=== PATIENT | female | born 1975 | race Caucasian/White ===

== ENCOUNTER 2017-05-24 22:04 | Emergency (ER) | payer MEDICAID ==
[2017-05-24 22:29] VITALS: BP 138/97
--- NOTE | 2017-05-25 13:38 | EDM.PDOC ---
ED HPI GENERAL MEDICAL PROBLEM - General Chief Complaint: General Stated Complaint: "NOT FEELING WELL" Time Seen by Provider: 05/24/17 22:15 Source of Information: Reports: Patient History Limitations: Reports: No Limitations - History of Present Illness INITIAL COMMENTS - FREE TEXT/NARRATIVE: This is a 41yo F here for cough, chest congestion and fever. She states she does have body aches. Patient has been sick since the of the month and states things have not improved. She has not seen a provider since the symptoms began and has not made any clinic appointment or call. Onset: Gradual Duration: Week(s):, Constant Location: Reports: Generalized - Related Data Allergies Allergy/AdvReac Type Severity Reaction Status Date / Time doxycycline Allergy Hives Verified 05/24/17 22:27 Home Meds: Home Meds Levothyroxine Sodium [Levothyroxine Sodium] 137 mcg PO DAILY 05/24/17 [History] Omeprazole [Omeprazole] 40 mg PO DAILY 05/24/17 [History] Past Medical History HEENT History: Reports: Other (See Below) Other HEENT History: Hx trach-has been removed Respiratory History: Reports: Other (See Below) Other Respiratory History: Hx Trach-has been removed Gastrointestinal History: Reports: GERD 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 Musculoskeletal History: Reports: Back Pain, Chronic Other Psychiatric History: Pt on medications for depression. Pt did not state that she had depression. 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 lymphoma Immunologic History: Reports: Other (See Below) Other Immunologic History: just finished radiation treatments Oncologic (Cancer) History: Reports: Non-Hodgkin's Lymphoma - Infectious Disease History Infectious Disease History: Reports: Chicken Pox - Past Surgical History Respiratory Surgical History: Reports: Other (See Below) Other Respiratory Surgeries/Procedures: tracheostomy Other Female Surgeries/Procedures: Lt ovary removed Social & Family History - Family History Family Medical History: Noncontributory - Tobacco Use Smoking Status *Q: Current Some Day Smoker Years of Tobacco use: 25 Packs/Tins Daily: 0.5 Used Tobacco, but Quit: No Month Tobacco Last Used: july quit one week ago Second Hand Smoke Exposure: No - Caffeine Use Caffeine Use: Reports: Coffee, Energy Drinks, Soda - Alcohol Use Days Per Week of Alcohol Use: 0 Number of Drinks Per Day: 1 Total Drinks Per Week: 0 - Recreational Drug Use Recreational Drug Use: No ED ROS GENERAL - Review of Systems Review Of Systems: ROS reveals no pertinent complaints other than HPI. ED EXAM, GENERAL - Physical Exam Exam: See Below Exam Limited By: No Limitations General Appearance: Alert, WD/WN, Mild Distress Eye Exam: Bilateral Eye: EOMI, PERRL Ears: Normal External Exam Nose: Normal Inspection, Normal Mucosa, No Blood Throat/Mouth: Normal Inspection, Normal Lips, Normal Teeth, Normal Gums Head: Atraumatic, Normocephalic Neck: Normal Inspection, Supple, Non-Tender, Full Range of Motion Respiratory/Chest: No Respiratory Distress, Lungs Clear, Normal Breath Sounds, No Accessory Muscle Use, Chest Non-Tender Cardiovascular: Normal Peripheral Pulses, Regular Rate, Rhythm GI/Abdominal: Normal Bowel Sounds, Soft, Non-Tender Back Exam: Normal Inspection, Full Range of Motion Neurological: Alert, Oriented, CN II-XII Intact Psychiatric: Normal Affect, Normal Mood Skin Exam: Warm, Dry, Intact Course - Vital Signs Last Recorded V/S: Last Vital Signs Temp 35.8 C 05/24/17 22:10 Pulse 90 05/24/17 22:10 Resp 20 05/24/17 22:10 BP 138/97 H 05/24/17 22:10 Pulse Ox 100 05/24/17 22:10 Departure - Departure Time of Disposition: 23:00 Disposition: Home, Self-Care 01 Condition: Good Clinical Impression: Cold - Discharge Information Instructions: Viral Gastroenteritis, Adult, [id number] Referrals: PCP,None [Primary Care Provider] - Forms: ED Department Discharge Additional Instructions: Drink plenty of fluids and get plenty of rest. Diet as tolerated. May take ibuprofen and/or tylenol according to package instructions as needed for pain. Should symptoms continue or worsen, follow up in clinic as needed. Call with any questions.
== END 2017-05-24 23:17 | disposition home or self-care (01) ==
LOC: LB.ED 22:04
DX: J00 Acute nasopharyngitis [common cold] (principal); E03.9 Hypothyroidism, unspecified; F17.210 Nicotine dependence, cigarettes, uncomplicated; Z90.721 Acquired absence of ovaries, unilateral; Z88.1 Allergy status to other antibiotic agents
CPT/HCPCS: 87804; 99283

== ENCOUNTER 2019-01-20 21:27 | Emergency (ER) | payer MEDICAID ==
[2019-01-20 21:41] VITALS: BP 151/100; PULSE 78
[2019-01-20] MEDS: Ketorolac 60 MG/2 ML SDV IM ONE (21:48)
--- NOTE | 2019-01-20 21:48 | EDM.PDOC ---
ED HPI GENERAL MEDICAL PROBLEM - General Chief Complaint: General Stated Complaint: migraine Time Seen by Provider: 01/20/19 21:30 Source of Information: Reports: Patient History Limitations: Reports: No Limitations - History of Present Illness INITIAL COMMENTS - FREE TEXT/NARRATIVE: According to patient she claims that she has been having right sided headache for 3 days now. Started as a dull throbbing pain on the rider frontal region, asso with photophobia and phonophobia 3 days ago. Has got worse .Pt has been taking Tylenol and ibuprofen 2-3 times daily and not able to sleep well at night. Has been feeling nauseous and has vomited few times. Today she rates her pain at 9/10 and hence her in the emergency room. Pt claims she has had margarine headache, but has not them for a while now, but in the past 2-3 months she has been getting more often. No mental stress. No blurry vision, no weakness, tingling or numbness. Onset: Gradual Onset Date: 01/17/19 Duration: Getting Worse Location: Reports: Head Quality: Reports: Ache Severity: Severe Improves with: Reports: None Worsens with: Reports: None Associated Symptoms: Reports: Headaches. Denies: Confusion, Chest Pain, Cough, Diaphoresis, Fever/Chills, Nausea/Vomiting, Rash, Seizure, Shortness of Breath, Syncope, Weakness Headache Pain Score (Numeric/FACES): 10 - Related Data Allergies Allergy/AdvReac Type Severity Reaction Status Date / Time doxycycline Allergy Hives Verified 05/26/18 21:15 Home Meds: Home Meds Levothyroxine Sodium 137 mcg PO DAILY 05/24/17 [History] Omeprazole 40 mg PO DAILY 05/24/17 [History] PARoxetine [Paxil] 20 mg PO DAILY 05/26/18 [History] hydrOXYzine HCl [hydrOXYzine] 25 mg PO DAILY PRN 05/26/18 [History] Past Medical History HEENT History: Reports: Other (See Below) Other HEENT History: Hx trach-has been removed Respiratory History: Reports: Other (See Below) Other Respiratory History: Hx Trach-has been removed Gastrointestinal History: Reports: GERD 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 Musculoskeletal History: Reports: Back Pain, Chronic Other Psychiatric History: Pt on medications for depression. Pt did not state that she had depression. 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 lymphoma Immunologic History: Reports: Other (See Below) Other Immunologic History: just finished radiation treatments Oncologic (Cancer) History: Reports: Non-Hodgkin's Lymphoma - Infectious Disease History Infectious Disease History: Reports: Chicken Pox - Past Surgical History Respiratory Surgical History: Reports: Other (See Below) Other Respiratory Surgeries/Procedures: tracheostomy Other Female Surgeries/Procedures: Lt ovary removed Social & Family History - Family History Family Medical History: Noncontributory - Tobacco Use Smoking Status *Q: Current Every Day Smoker Years of Tobacco use: 20 Packs/Tins Daily: 0.5 - Caffeine Use Caffeine Use: Reports: Coffee, Soda - Recreational Drug Use Recreational Drug Use: No ED ROS GENERAL - Review of Systems Review Of Systems: See Below Constitutional: Denies: Fever, Chills, Weakness HEENT: Denies: Ear Pain, Rhinitis, Throat Pain, Vision Change Respiratory: Denies: Cough, Sputum Cardiovascular: Denies: Chest Pain, Lightheadedness, Syncope GI/Abdominal: Reports: Nausea, Vomiting Musculoskeletal: Denies: Joint Pain, Joint Swelling Skin: Denies: Bruising, Pruritis, Rash Neurological: Reports: Headache. Denies: Confusion, Dizziness, Numbness, Tingling ED EXAM, GENERAL - Physical Exam Exam: See Below Exam Limited By: No Limitations General Appearance: Alert, WD/WN, Mild Distress (from headache.) Eye Exam: Bilateral Eye: EOMI, PERRL Ears: Normal External Exam, Normal Canal, Hearing Grossly Normal, Normal TMs Ear Exam: Bilateral Ear: Auricle Normal, Canal Normal, TM normal Nose: Normal Inspection, Normal Mucosa, No Blood Throat/Mouth: Normal Inspection, Normal Lips, Normal Teeth, Normal Gums, Normal Oropharynx, Normal Voice, No Airway Compromise Head: Atraumatic, Normocephalic Neck: Normal Inspection, Supple, Non-Tender, Full Range of Motion Respiratory/Chest: No Respiratory Distress, Lungs Clear, Normal Breath Sounds, No Accessory Muscle Use, Chest Non-Tender Cardiovascular: Normal Peripheral Pulses, Regular Rate, Rhythm, No Edema, No Gallop, No JVD, No Murmur, No Rub Extremities: Normal Inspection, Normal Range of Motion, Non-Tender, Normal Capillary Refill, No Pedal Edema Neurological: Alert, Oriented, CN II-XII Intact, Normal Cognition, Normal Gait, Normal Reflexes, No Motor/Sensory Deficits Course - Vital Signs Text/Narrative:: Pt appears to have migraine headache , as she has photophobia and phonophobia. Also has been nauseous. Hr headache has not resolved in 3 days now. Pt did receive Toradol 60mg Im along with zofran 4mg Im in the emergency room. Pt advised to go home and sleep. Headache should resolve in 2-3 hrs time. If she continues to have recurrent headache, she should be seen in the clinic and started on prophylaxis. Last Recorded V/S: Last Vital Signs Temp 97.4 F 01/20/19 21:30 Pulse 78 01/20/19 21:30 Resp 16 01/20/19 21:30 BP 151/100 H 01/20/19 21:30 Pulse Ox 99 01/20/19 21:30 - Orders/Labs/Meds Meds: Medications Discontinued Medications Generic Name Dose Route Start Last Admin Trade Name Ruby PRN Reason Stop Dose Admin Ketorolac Tromethamine 60 mg 01/20/19 21:45 01/20/19 21:48 Toradol IM 01/20/19 21:46 60 mg ONETIME ONE Administration Ondansetron HCl 4 mg 01/20/19 21:46 01/20/19 21:50 Zofran IM 01/20/19 21:47 4 mg ONETIME ONE Administration Departure - Departure Time of Disposition: 22:00 Disposition: Home, Self-Care 01 Condition: Fair Clinical Impression: Migraine headache - Discharge Information *PRESCRIPTION DRUG MONITORING PROGRAM REVIEWED*: Not Applicable *COPY OF PRESCRIPTION DRUG MONITORING REPORT IN PATIENT MELVIN: Not Applicable Forms: ED Department Discharge Additional Instructions: Pt appears to have migraine headache , as she has photophobia and phonophobia. Also has been nauseous. Hr headache has not resolved in 3 days now. Pt did receive Toradol 60mg Im along with zofran 4mg Im in the emergency room. Pt advised to go home and sleep. Headache should resolve in 2-3 hrs time. If she continues to have recurrent headache, she should be seen in the clinic and started on prophylaxis. - Problem List & Annotations (1) Migraine headache SNOMED Code(s): 79170286 Code(s): G43.909 - MIGRAINE, UNSP, NOT INTRACTABLE, WITHOUT STATUS MIGRAINOSUS Status: Acute Current Visit: Yes - Problem List Review Problem List Initiated/Reviewed/Updated: Yes - Assessment/Plan Assessment:: Migraine headache Plan: Pt appears to have migraine headache , as she has photophobia and phonophobia. Also has been nauseous. Hr headache has not resolved in 3 days now. Pt did receive Toradol 60mg Im along with zofran 4mg Im in the emergency room. Pt advised to go home and sleep. Headache should resolve in 2-3 hrs time. If she continues to have recurrent headache, she should be seen in the clinic and started on prophylaxis.
[2019-01-20] MEDS: Ondansetron 4 MG/2 ML SDV IM ONE (21:50)
== END 2019-01-20 22:05 | disposition home or self-care (01) ==
LOC: LB.ED 21:27
DX: G43.909 Migraine, unspecified, not intractable, without status migrainosus (principal); E03.9 Hypothyroidism, unspecified; K21.9 Gastro-esophageal reflux disease without esophagitis; F32.9 Major depressive disorder, single episode, unspecified; F17.210 Nicotine dependence, cigarettes, uncomplicated; Z88.8 Allergy status to other drugs, medicaments and biological substances; Z79.899 Other long term (current) drug therapy
CPT/HCPCS: 96372; 99283; J1885; J2405

== ENCOUNTER 2019-09-17 09:24 | Emergency (ER) | payer BC ==
[2019-09-17] MEDS ORDERED: Ketorolac 60 MG/2 ML SDV IM ONE (10:01)
[2019-09-17 10:04] VITALS: BP 139/101; PULSE 93
--- NOTE | 2019-09-17 10:05 | EDM.PDOC ---
ED HPI GENERAL MEDICAL PROBLEM - General Chief Complaint: Trauma Stated Complaint: RIGHT FOOT PAIN Time Seen by Provider: 09/17/19 10:00 Source of Information: Reports: Patient History Limitations: Reports: No Limitations - History of Present Illness INITIAL COMMENTS - FREE TEXT/NARRATIVE: This patient presents to the ED for evaluation of right ankle pain. She states she stepped off a curb and rolled her ankle. She is complaining of pain on the dorsum of the foot. She did fall into the side of her car but denies other injuries. She denies recent illness including fever, cough, shortness or breath , of sore throat. Onset: Today, Sudden Onset Date: 09/17/19 Duration: Getting Worse Location: Reports: Lower Extremity, Right Quality: Reports: Throbbing Severity: Moderate Worsens with: Reports: Movement Context: Reports: Activity Right Ankle Pain Score (Numeric/FACES): 9 - Related Data Allergies Allergy/AdvReac Type Severity Reaction Status Date / Time doxycycline Allergy Hives Verified 09/17/19 09:58 Home Meds: Home Meds Levothyroxine Sodium 137 mcg PO DAILY 05/24/17 [History] Omeprazole 40 mg PO DAILY 05/24/17 [History] PARoxetine [Paxil] 20 mg PO DAILY 05/26/18 [History] hydrOXYzine HCL [hydrOXYzine] 25 mg PO DAILY PRN 05/26/18 [History] Past Medical History HEENT History: Reports: Other (See Below) Other HEENT History: Hx trach-has been removed Respiratory History: Reports: Other (See Below) Other Respiratory History: Hx Trach-has been removed Gastrointestinal History: Reports: GERD 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 Musculoskeletal History: Reports: Back Pain, Chronic Neurological History: Reports: Migraines Other Psychiatric History: Pt on medications for depression. Pt did not state that she had depression. 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 lymphoma Immunologic History: Reports: Other (See Below) Other Immunologic History: just finished radiation treatments Oncologic (Cancer) History: Reports: Non-Hodgkin's Lymphoma - Infectious Disease History Infectious Disease History: Reports: Chicken Pox - Past Surgical History Respiratory Surgical History: Reports: Other (See Below) Other Respiratory Surgeries/Procedures: tracheostomy Other Female Surgeries/Procedures: Lt ovary removed Social & Family History - Family History Family Medical History: Noncontributory - Caffeine Use Caffeine Use: Reports: Coffee, Soda Review of Systems - Review of Systems Review Of Systems: Comprehensive ROS is negative, except as noted in HPI. ED EXAM, GENERAL - Physical Exam Exam: See Below Exam Limited By: No Limitations General Appearance: Alert, No Apparent Distress Eye Exam: Bilateral Eye: PERRL Ears: Normal External Exam Nose: Normal Inspection Throat/Mouth: Normal Inspection Head: Atraumatic, Normocephalic Neck: Normal Inspection, Full Range of Motion Respiratory/Chest: No Respiratory Distress, No Accessory Muscle Use Extremities: Other (Left foot: swollen across dorsum, no obvious deformity with moderate amount of swelling. Distal CMS intact.) Neurological: Alert, Oriented Psychiatric: Normal Affect Skin Exam: Warm, Dry, Intact ED TRAUMA EXTREMITY PROCEDURES - Splinting Right Lower Extremity Splint Site: right foot Pre-Procedure NV Status: Normal Post-Procedure NV Status: Normal Splint Material: Boot Orthotic Applied & Form Fitted By: Nurse Provider Post-Splint Application NV Check: NV Status Normal, Good Position Complications: No Course - Vital Signs Last Recorded V/S: Last Vital Signs Temp 36.3 C 09/17/19 09:58 Pulse 93 09/17/19 09:58 Resp 16 09/17/19 09:58 BP 139/101 H 09/17/19 09:58 Pulse Ox 98 09/17/19 09:58 - Orders/Labs/Meds Orders: Active Orders 24 hr Category Date Time Status Ankle Min 3V Rt [CR] Stat Exams 09/17/19 10:01 Taken Meds: Medications Discontinued Medications Generic Name Dose Route Start Last Admin Trade Name Ruby PRN Reason Stop Dose Admin Ketorolac Tromethamine 60 mg 09/17/19 10:01 09/17/19 10:11 Toradol IM 09/17/19 10:02 60 mg ONETIME ONE Administration Ketorolac Tromethamine Confirm 09/17/19 10:19 Toradol Administered 09/17/19 10:20 Dose 60 mg .ROUTE .STK-MED ONE - Re-Assessments/Exams Free Text/Narrative Re-Assessment/Exam: 09/17/19 13:07 This patient presents for evaluation of foot pain after a fall. CMS is intact distally in the extremity. X-rays reveal a non-displaced fracture of the proximal 3rd tarsal that does not need reduction at this time. Splint and fracture precautions for home. The patients head to toe trauma exam is otherwise normal at this time and no further trauma workup is needed as I believe there is no signs of serious head, neck, chest, spinal, extremity or abdominal injuries. This is a non-operative injury and unless further angulation with time or unrelenting pain, definitive fracture care is provided. Patient educated on natural course of this fracture, provided pain medication, need for increasing gentle activity, and possible complications of fractures. They need to follow up with primary only and only if further symptoms or progressive symptoms will need to seek care again in ED or with primary care provider. Departure - Departure Time of Disposition: 11:00 Disposition: Home, Self-Care 01 Condition: Good Clinical Impression: Fracture of foot - Discharge Information Instructions: Ankle Fracture Referrals: PCP,None [Primary Care Provider] - Forms: ED Department Discharge Care Plan Goals: Keep walking boot on as much as possible. Ice and elevate the next 24-48 hrs. Take pain medication as directed for pain. Limit activity, return or call with any questions or concerns. Sepsis Event Note - Focused Exam Vital Signs: Vital Signs Temp Pulse Resp BP Pulse Ox 09/17/19 09:58 36.3 C 93 16 139/101 H 98 Date Exam was Performed: 09/17/19 Time Exam was Performed: 13:02 - My Orders Last 24 Hours: My Active Orders 09/17/19 10:01 Ankle Min 3V Rt [CR] Stat - Assessment/Plan Last 24 Hours: My Active Orders 09/17/19 10:01 Ankle Min 3V Rt [CR] Stat
[2019-09-17] MEDS ORDERED: Ketorolac 60 MG/2 ML SDV ONE (10:19)
[2019-09-17] MEDS ORDERED: Acetaminophen/oxyCODONE 325-5 MG Tab ONE (10:30)
--- NOTE | 2019-09-17 23:17 | CR ---
DATE OF SERVICE: 09/17/2019 CLINICAL DATA: Trauma. RIGHT FOOT: Mild osteoarthritic changes involving multiple joints. There are plantar and posterior calcaneal spurs. No acute abnormalities. [id number] [facility]
== END 2019-09-17 10:40 | disposition home or self-care (01) ==
LOC: LB.ED 09:24
DX: S92.201A Fracture of unspecified tarsal bone(s) of right foot, initial encounter for closed fracture (principal); K21.9 Gastro-esophageal reflux disease without esophagitis; E03.9 Hypothyroidism, unspecified; F32.9 Major depressive disorder, single episode, unspecified; Z88.1 Allergy status to other antibiotic agents; Z79.899 Other long term (current) drug therapy; X50.9XXA Other and unspecified overexertion or strenuous movements or postures, initial encounter
CPT/HCPCS: 73610-RT; 96372; 99283-25; A9270-GY; J1885

== ENCOUNTER 2019-11-07 09:28 | Emergency (ER) | payer BC ==
[2019-11-07 09:55] VITALS: BP 144/106; PULSE 86
[2019-11-07] MEDS ORDERED: Ketorolac 30 MG/ML SDV IVPUSH ONE (10:15)
[2019-11-07] MEDS ORDERED: Ondansetron 4 MG/2 ML SDV IVPUSH ONE ×2 (10:15→11:39)
[2019-11-07] MEDS ORDERED: Sodium Chloride 0.9% 1,000 ML IV ONE (10:16)
[2019-11-07] MEDS ORDERED: Ketorolac 30 MG/ML SDV ONE (10:40)
[2019-11-07] MEDS ORDERED: Ondansetron 4 MG/2 ML SDV ONE ×2 (10:45→11:56)
[2019-11-07] MEDS ORDERED: HYDROmorphone 2 MG/ML SDV IVPUSH ONE ×2 (11:18→11:39)
[2019-11-07] MEDS ORDERED: HYDROmorphone 2 MG/ML SDV ONE ×2 (11:29→11:56)
--- NOTE | 2019-11-07 15:17 | ER ---
HISTORY OF PRESENT ILLNESS: 44-year-old lady who comes in with complaints of a headache that started yesterday. She has been nauseated. She has vomited multiple times overnight. She feels fatigued and sweaty at times. She is very light sensitive as well. She also noted yesterday she had one occasion of some blood in her urine, but that was only one occasion. The patient has not had any falls or injuries. She works at [place] the [place]. She has not had any known exposure to COVID. OBJECTIVE: GENERAL APPEARANCE: The patient is awake and alert. She is obviously somewhat sensitive to light. VITAL SIGNS: Reviewed. Blood pressure 144/106. She is afebrile. O2 sats are 97%, respirations 18. HEENT: Ears; TMs are dull, otherwise normal. Nares are patent. Oral mucous membranes are slightly dry. Tonsils are not enlarged or injected. Pharynx not inflamed. NECK: Supple. LUNGS: Clear. SKIN: Warm and dry. ABDOMEN: Soft. Mild tenderness diffusely is noted with light palpation. Bowel sounds are present and active. INITIAL TREATMENT: An IV was started. The patient was given Toradol 30 mg and Zofran 4 mg IV, and we started 1 L bolus of normal saline. LABORATORY DATA: Labs done included CBC which is normal as well as a CMP which is unremarkable. The patient did not receive much relief from the Toradol. We therefore added Dilaudid 1 mg IV and within about 20 minutes, she stated that she was definitely feeling better. A COVID test was also done with results pending. DIAGNOSIS: Migraine headache. TREATMENT PLAN: The patient will be discharged home. We did give her 1 more mg of Dilaudid and 4 mg of Zofran as a 2nd dose just before leaving. 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 She states that she usually uses Imitrex at home as well as other [id number] medications plus rest when she gets a migraine. I advised her to do the same thing. I gave her slip to be off work today and possibly tomorrow. CRS/MODL /[id number]
--- NOTE | 2019-11-07 16:54 | CR ---
Date of Service: 11/07/19 Clinical Data: cough AP CHEST: Comparison is made a prior exam dated 04/06/19. The heart size is normal. The lungs are clear. No pneumothorax. No pleural effusions. No evidence of acute intrathoracic disease. [id number] [facility]
== END 2019-11-07 12:26 | disposition home or self-care (01) ==
LOC: LB.ED 09:28
DX: G43.909 Migraine, unspecified, not intractable, without status migrainosus (principal); R11.10 Vomiting, unspecified; Z20.828 Contact with and (suspected) exposure to other viral communicable diseases
CPT/HCPCS: 36415; 71045; 80053; 85025; 96361; 96374; 96375; 96376; 99284-25; J1170; J1885; J2405; J7030; U0002

== ENCOUNTER 2020-01-07 11:44 | Emergency (ER) | payer BC, OTHER ==
[2020-01-07] MEDS ORDERED: Nitroglycerin 0.4 MG Tab.SL SL PRN (12:15)
[2020-01-07] MEDS ORDERED: Sodium Chloride 0.9% 10 ML Syringe FLUSH PRN (12:15)
[2020-01-07] MEDS ORDERED: Morphine 2 MG/ML SYRINGE IVPUSH PRN (12:15)
--- NOTE | 2020-01-07 12:15 | EDM.PDOC ---
ED HPI GENERAL MEDICAL PROBLEM - General Chief Complaint: Chest Pain Stated Complaint: CHEST PAIN Time Seen by Provider: 01/07/20 12:08 Source of Information: Reports: Patient History Limitations: Reports: No Limitations - History of Present Illness INITIAL COMMENTS - FREE TEXT/NARRATIVE: 44 y/o female c/o intense chest pain, sharp, stabbing and piercing into back, dyspnea, no diaphoresis. Tinging in right arm and right side of his face and lips. Pain rated 9/10. Given two baby asa and one NTG with improvement of pain from 9 to 6. No cardiac hx but h/o non-hodgkins lymphoma in admission past 3 years. 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 Musculoskeletal History: Reports: Back Pain, Chronic Neurological History: Reports: Migraines Other Psychiatric History: Pt on medications for depression. Pt did not state that she had depression. 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 lymphoma Immunologic History: Reports: Other (See Below) Other Immunologic History: just finished radiation treatments Oncologic (Cancer) History: Reports: Non-Hodgkin's Lymphoma - Infectious Disease History Infectious Disease History: Reports: Chicken Pox - Past Surgical History Respiratory Surgical History: Reports: Other (See Below) Other Respiratory Surgeries/Procedures: tracheostomy Other Female Surgeries/Procedures: Lt ovary removed Social & Family History - Family History Family Medical History: Noncontributory - Caffeine Use Caffeine Use: Reports: Coffee ED ROS GENERAL - Review of Systems Review Of Systems: See Below Constitutional: Denies: Fever, Malaise HEENT: Reports: No Symptoms Respiratory: Reports: No Symptoms, Shortness of Breath, Pleuritic Chest Pain. Denies: Wheezing Cardiovascular: Reports: Chest Pain Endocrine: Reports: No Symptoms GI/Abdominal: Reports: No Symptoms. Denies: Nausea, Vomiting Musculoskeletal: Reports: Arm Pain Skin: Reports: No Symptoms Neurological: Reports: No Symptoms, Paresthesia. Denies: Headache Psychiatric: Reports: No Symptoms ED EXAM, GENERAL - Physical Exam Exam: See Below Exam Limited By: No Limitations General Appearance: Alert, WD/WN, Anxious, Mild Distress Ears: Normal External Exam Nose: Normal Inspection Throat/Mouth: Normal Inspection Head: Atraumatic, Normocephalic Neck: Normal Inspection, Supple, Non-Tender, Full Range of Motion Respiratory/Chest: No Respiratory Distress, Lungs Clear, Normal Breath Sounds Cardiovascular: Normal Peripheral Pulses, Regular Rate, Rhythm, No Edema GI/Abdominal: Soft Neurological: Alert, Oriented, CN II-XII Intact, Normal Cognition, Normal Gait Psychiatric: Normal Affect, Normal Mood, Anxious Skin Exam: Warm, Dry EKG INTERPRETATION EKG Date: 01/07/20 Rhythm: NSR [place]: Normal P-Wave: Present QRS: Normal ST-T: Normal QT: Normal Course - Vital Signs Last Recorded V/S: Last Vital Signs Temp Pulse 98 01/07/20 12:50 Resp 16 01/07/20 13:30 BP 136/96 H 01/07/20 13:30 Pulse Ox 98 01/07/20 13:30 - Orders/Labs/Meds Orders: Active Orders 24 hr Category Date Time Status Morphine Med 01/07/20 12:15 Active 4 mg IVPUSH Q10M PRN Nitroglycerin [Nitrostat] Med 01/07/20 12:15 Active 0.4 mg SL Q5M PRN Sodium Chloride 0.9% [Saline Flush] Med 01/07/20 12:15 Active 10 ml FLUSH ASDIRECTED PRN Peripheral IV Insertion Adult [OM.PC] Stat Oth 01/07/20 12:15 Ordered Medication Orders Morphine Sulfate (Morphine) 4 mg IVPUSH Q10M PRN PRN Reason: Chest Pain Stop: 01/08/20 12:17 Last Admin: 01/07/20 12:35 Dose: 4 mg Documented by: DEVAN Nitroglycerin (Nitrostat) 0.4 mg SL Q5M PRN PRN Reason: Chest Pain Stop: 01/08/20 12:18 Sodium Chloride (Saline Flush) 10 ml FLUSH ASDIRECTED PRN PRN Reason: Keep Vein Open Labs: Laboratory Tests 01/07/20 01/07/20 01/07/20 Range/Units 12:15 12:24 12:30 WBC 10.0 D (4.0-11.0) K/uL RBC 4.90 (3.80-5.80) M/uL Hgb 15.1 (11.5-16.5) g/dL Hct 43.7 (37.0-47.0) % MCV 89 (76-96) fL MCH 30.8 (27.0-32.0) pg MCHC 34.6 (31.0-35.0) g/dL RDW 13.2 (11.0-16.0) % Plt Count 327 (150-500) K/uL MPV 9.1 (6.0-10.0) fL Neut % (Auto) 63.2 (45.0-70.0) % Lymph % (Auto) 24.2 (20.0-40.0) % [place] % (Auto) 10.3 H (3.0-10.0) % Eos % (Auto) 1.7 (1.0-5.0) % Baso % (Auto) 0.6 H (0.0-0.5) % Neut # (Auto) 6.32 (2.00-7.50) K/uL Lymph # (Auto) 2.42 (1.50-4.00) K/uL [place] # (Auto) 1.03 H (0.20-0.80) K/uL Eos # (Auto) 0.17 (0.04-0.40) K/uL Baso # (Auto) 0.06 (0.02-0.10) K/uL Sodium 140 (136-145) mmol/L Potassium 3.9 (3.5-5.1) mmol/L Chloride 104 (98-107) mmol/L Carbon Dioxide 25.0 (21.0-32.0) mmol/L Anion Gap 14.9 (5.0-15.0) mmol/L BUN 10 D (8-26) mg/dL Creatinine 0.72 (0.55-1.02) mg/dL Est Cr Clr Drug Dosing TNP Estimated GFR (MDRD) > 60 (>60) MLS/MIN BUN/Creatinine Ratio 13.9 (6-25) Glucose 98 (74-100) mg/dL Calcium 8.8 (8.5-10.1) mg/dL Total Bilirubin 0.7 (0.0-1.0) mg/dL AST 25 (15-37) U/L ALT 45 (12-78) U/L Alkaline Phosphatase 92 (46-116) U/L Troponin I < 0.017 (0.000-0.060) ng/mL Total Protein 7.5 (6.4-8.2) g/dL Albumin 3.7 (3.4-5.0) g/dL Globulin 3.8 (2.2-4.2) g/dL Albumin/Globulin Ratio 1.0 (0.8-2.0) COVID-19 (MAGUI) Negative Meds: Medications Generic Name Dose Route Start Last Admin Trade Name Freq PRN Reason Stop Dose Admin Morphine Sulfate 4 mg 01/07/20 12:15 01/07/20 12:35 Morphine IVPUSH 01/08/20 12:17 4 mg Q10M PRN Administration Chest Pain Nitroglycerin 0.4 mg 01/07/20 12:15 Nitrostat SL 01/08/20 12:18 Q5M PRN Chest Pain Sodium Chloride 10 ml 01/07/20 12:15 Saline Flush FLUSH ASDIRECTED PRN Keep Vein Open Discontinued Medications Generic Name Dose Route Start Last Admin Trade Name Freq PRN Reason Stop Dose Admin Ondansetron HCl 4 mg 01/07/20 12:27 Zofran Odt PO 01/07/20 12:28 ONETIME ONE Ondansetron HCl 4 mg 01/07/20 12:30 01/07/20 12:33 Zofran IVPUSH 01/07/20 12:31 4 mg ONETIME ONE Administration - Re-Assessments/Exams Free Text/Narrative Re-Assessment/Exam: Pt with improvement of pain and elevated BP with medication and timer. EKG - NSR without any abnormality. 01/07/20 13:00 P Free Text/Narrative Re-Assessment/Exam: 01/07/20 13:27 Cardiac enzymes were normal all labsLCBC, CMP were totally normal COVID test - negative. Departure - Departure Time of Disposition: 13:46 Disposition: Home, Self-Care 01 Reason for Transfer *Q: Primary PCI Indicated Condition: Good Clinical Impression: Acute costochondritis Instructions: Costochondritis, [id number], Nonspecific Chest Pain, Adult, [id number] Forms: ED Department Discharge Sepsis Event Note (ED) - Focused Exam Vital Signs: Vital Signs Pulse Resp BP Pulse Ox 01/07/20 13:30 16 136/96 H 98 01/07/20 12:50 98 16 177/55 H 98 - My Orders Last 24 Hours: My Active Orders 01/07/20 12:15 Morphine 4 mg IVPUSH Q10M PRN Nitroglycerin [Nitrostat] 0.4 mg SL Q5M PRN Sodium Chloride 0.9% [Saline Flush] 10 ml FLUSH ASDIRECTED PRN Peripheral IV Insertion Adult [OM.PC] Stat - Assessment/Plan Last 24 Hours: My Active Orders 01/07/20 12:15 Morphine 4 mg IVPUSH Q10M PRN Nitroglycerin [Nitrostat] 0.4 mg SL Q5M PRN Sodium Chloride 0.9% [Saline Flush] 10 ml FLUSH ASDIRECTED PRN Peripheral IV Insertion Adult [OM.PC] Stat
[2020-01-07] MEDS ORDERED: Ondansetron 4 MG Tab.DIS PO ONE (12:27)
[2020-01-07] MEDS ORDERED: Ondansetron 4 MG/2 ML SDV IVPUSH ONE (12:30)
[2020-01-07 12:55] VITALS: PULSE 98
--- NOTE | 2020-01-07 13:16 | CR ---
DATE OF SERVICE: 01/07/2020 CLINICAL DATA: Chest pain AP chest: Comparison is made to a prior exam dated 07 November 2019. The heart size is normal. The lungs are clear. No pneumothorax. No pleural effusions. No evidence of acute intrathoracic disease. MTDD
[2020-01-07 13:31] VITALS: BP 136/96
== END 2020-01-07 13:43 | disposition home or self-care (01) ==
LOC: LB.ED 11:44
DX: M94.0 Chondrocostal junction syndrome [Tietze] (principal); K21.9 Gastro-esophageal reflux disease without esophagitis; E03.9 Hypothyroidism, unspecified; Z88.1 Allergy status to other antibiotic agents; Z79.899 Other long term (current) drug therapy; Z20.828 Contact with and (suspected) exposure to other viral communicable diseases
CPT/HCPCS: 36415; 71045; 80053; 84484; 85025; 93005; 96374; 96375; 99285-25; J2270; J2405; U0002

== ENCOUNTER 2020-01-30 12:47 | Emergency (ER) | payer BC, OTHER ==
[2020-01-30] MEDS ORDERED: Ondansetron 4 MG Tab.DIS PO ONE ×2 (13:09→14:38)
[2020-01-30] MEDS ORDERED: HYDROmorphone 4 MG/ML Syringe SUBCUT PRN (13:48)
--- NOTE | 2020-01-30 14:13 | CT ---
DATE OF SERVICE: 01/30/2020 CLINICAL DATA: Dizziness, blurred vision Unenhanced brain CT: The multi slice acquisition through the brain without IV contrast was performed. Comparison is made to a prior exam dated 05 November 2007. No masses or mass effect. No intracranial hemorrhage. No evidence of acute or subacute infarct. The suprasellar cistern does appear to protrude into the sella suggesting the possibility of an "empty sella." An MRI scan may be helpful to further evaluate. No osseous abnormalities. There is minimal mucosal thickening in the ethmoid sinuses consistent with chronic sinusitis. MTDD
[2020-01-30] MEDS ORDERED: Ondansetron 4 MG Tab.DIS PO PRN (14:21)
[2020-01-30 14:42] VITALS: BP 128/87; PULSE 80
--- NOTE | 2020-01-30 20:17 | ER ---
HISTORY OF PRESENT ILLNESS: A 44-year-old female who comes in with a family member with complaints of sudden onset of blurred vision, nausea, and a severe headache. She states this started roughly 45 minutes ago. The patient tells me that she was just getting ready for work. She states that she did feel a little tired more than usual yesterday and again today, but otherwise was feeling okay. The patient denies any recent falls or injuries and she denies any previous history of similar nature. CURRENT MEDICATIONS: Include PPI and levothyroxine. PAST MEDICAL HISTORY: Also includes non Hodgkin lymphoma which was actually treated 2 to 3 years ago. OBJECTIVE: GENERAL APPEARANCE: The patient is awake and alert, in no respiratory distress, although she does state that her chest feels a little tight. VITAL SIGNS: Reviewed. She is afebrile. Blood pressure 130/87, respirations 20, pulse 84. EYES: Pupils equal, round, and reactive to light. EOMs are intact. Head is normocephalic. Oral mucous membranes are moist. Tonsils not enlarged or injected. Pharynx not inflamed. Neck is supple. Lungs are clear. CARDIAC: Heart sounds distinct without murmurs. Skin is warm and dry. Cranial nerves 2 through 12 are intact. The patient can move all 4 extremities freely and there is no numbness or pain involving abdomen or extremities. Further visual evaluation reveals the patient's left eye is the blurry one. The right eye is clear and she was tested on the visual acuity chart and was 20/20 with the right eye. Left eye, she could barely read the E at the top of the chart. When moving my hand across her visual muniz centrally, it goes to double vision and she states she can see two hands that are exactly the same size. The peripheral vision reversed to a single hand. LABORATORY DATA: Labs include a CBC and comprehensive metabolic panel, they are normal. COVID test was done as well, even though her symptoms are not extremely accurate with COVID. 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 This test result is currently pending. Chest x-ray is unremarkable. Head CT was obtained. There is no mass and no sign of an acute bleed. There is a question of an empty sella and an MRI is suggested for further evaluation. This will be done at a slightly later point in time. DIAGNOSIS: Acute visual changes to the left eye involving central vision being double vision. TREATMENT PLAN: I did consult with Merlin Wilder who connected me with the [facility], Dr. Boone. I discussed the patient's case with him and he wants her to be seen in his clinic today. He feels she should be able to go by private car with someone else driving. The patient states that she has a daughter who can drive her as well as other people. Dr. Boone recommended that the patient leave our ER as fast as possible and go directly to their clinic. They will be waiting for her there. He is concerned about intraocular pressure as well as other possible options in the differential. The patient agrees with the treatment plan. While in our ER, she was given Zofran 4 mg sublingual and Dilaudid 1 mg subcu. This did decrease her headache which she had rated at 8 or 9, down to a 6/10 and she states that she is more comfortable. Arrangements are being made for the patient to be transferred as soon as possible to the [facility] at this time. WILBUR/KOJO /[id number]
--- NOTE | 2020-01-31 10:04 | CR ---
DATE OF SERVICE: 01/30/20 CLINICAL DATA: chest tightness. AP CHEST: Comparison is made to a prior exam dated 01/07/20. The heart and lungs are stable. No pneumothorax. No pleural effusions. No evidence of acute intrathoracic disease. [id number] MTDD
== END 2020-01-30 14:40 | disposition home or self-care (01) ==
LOC: LB.ED 12:47
DX: H53.9 Unspecified visual disturbance (principal); R11.0 Nausea; Z20.828 Contact with and (suspected) exposure to other viral communicable diseases
CPT/HCPCS: 36415; 70450; 71045; 80053; 85025; 93005; 96372; 99283; 99285-25; A9270-GY; J1170; U0002

== ENCOUNTER 2020-08-16 15:31 | Emergency (ER) | payer BC ==
--- NOTE | 2020-08-16 15:45 | EDM.PDOC ---
ED HPI GENERAL MEDICAL PROBLEM - General Chief Complaint: Skin Complaint Stated Complaint: RASH ON NECK/PAIN UNDER BREASTS Time Seen by Provider: 08/16/20 15:45 Source of Information: Reports: Patient History Limitations: Reports: No Limitations - History of Present Illness INITIAL COMMENTS - FREE TEXT/NARRATIVE: patient presented to the ER with a c/o rash over her chest area for 2 days. Took Benadryl last night which helped to some degree. Still have some today. Also reports mild tightness in the lower chest. No CP or palpitations. Admits that she is a smoker for many years, still smoke cigarette on a daily basis but recently been trying to cut down. Denies fever or chills. No nausea/emesis. Denies a h/o DM or HTN. Has a h/o CAD in the family but not personally. Denies eating new food or taking any drugs beside her levothyroxine. No vision problem, no dizziness and no itching today. 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 Musculoskeletal History: Reports: Back Pain, Chronic Neurological History: Reports: Migraines Other Psychiatric History: Pt on medications for depression. Pt did not state that she had depression. 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 lymphoma Immunologic History: Reports: Other (See Below) Other Immunologic History: just finished radiation treatments Oncologic (Cancer) History: Reports: Non-Hodgkin's Lymphoma - Infectious Disease History Infectious Disease History: Reports: Chicken Pox - Past Surgical History Respiratory Surgical History: Reports: Other (See Below) Other Respiratory Surgeries/Procedures: tracheostomy Other Female Surgeries/Procedures: Lt ovary removed Social & Family History - Family History Family Medical History: No Pertinent Family History - Caffeine Use Caffeine Use: Reports: Coffee ED ROS GENERAL - Review of Systems Review Of Systems: See Below Constitutional: Reports: No Symptoms HEENT: Reports: No Symptoms Respiratory: Reports: No Symptoms Cardiovascular: Reports: No Symptoms. Denies: Dyspnea on Exertion, Lightheadedness, Orthopnea GI/Abdominal: Reports: No Symptoms Musculoskeletal: Reports: No Symptoms Skin: Reports: Pruritis, Rash Neurological: Reports: No Symptoms ED EXAM, SKIN/RASH Exam: See Below Exam Limited By: No Limitations General Appearance: Alert, WD/WN, No Apparent Distress Eye Exam: Bilateral Eye: EOMI Head: Atraumatic Neck: Normal Inspection Respiratory/Chest: No Respiratory Distress Cardiovascular: Normal Peripheral Pulses GI/Abdominal: Normal Bowel Sounds, Soft, Non-Tender, No Organomegaly Extremities: Normal Inspection, Normal Range of Motion, Non-Tender Neurological: Alert, Oriented, Normal Cognition, No Motor/Sensory Deficits Psychiatric: Normal Affect Skin: Warm, Dry, Intact Course - Vital Signs Last Recorded V/S: Last Vital Signs Temp 36.7 C 08/16/20 16:00 Pulse 100 08/16/20 16:00 Resp 20 08/16/20 16:00 BP 130/88 08/16/20 16:00 Pulse Ox 98 08/16/20 16:00 - Orders/Labs/Meds Orders: Active Orders 24 hr Category Date Time Status EKG Documentation Completion [RC] ASDIRECTED Care 08/16/20 15:55 Ordered Chest 2V [CR] Stat Exams 08/16/20 15:55 Ordered Sodium Chloride 0.9% [Saline Flush] Med 08/16/20 15:55 Ordered 10 ml FLUSH ASDIRECTED PRN lisinopriL [Prinivil] Med 08/16/20 17:10 Once 5 mg PO ONETIME ONE Saline Lock Insert [OM.PC] Routine Oth 08/16/20 15:55 Ordered Medication Orders Sodium Chloride (Sodium Chloride 0.9% 10 Ml Syringe) 10 ml FLUSH ASDIRECTED PRN PRN Reason: Keep Vein Open Labs: Laboratory Tests 08/16/20 08/16/20 08/16/20 Range/Units 16:00 16:00 16:00 WBC 9.7 (4.0-11.0) K/uL RBC 5.00 (3.80-5.80) M/uL Hgb 15.4 (11.5-16.5) g/dL Hct 44.3 (37.0-47.0) % MCV 89 (76-96) fL MCH 30.8 (27.0-32.0) pg MCHC 34.8 (31.0-35.0) g/dL RDW 13.2 (11.0-16.0) % Plt Count 342 (150-500) K/uL MPV 8.8 (6.0-10.0) fL D-Dimer, Quantitative 103 (0-400) ng/mL Sodium 140 (136-145) mmol/L Potassium 3.6 (3.5-5.1) mmol/L Chloride 102 (98-107) mmol/L Carbon Dioxide 27.5 D (21.0-32.0) mmol/L Anion Gap 14.1 (5.0-15.0) mmol/L BUN 11 (8-26) mg/dL Creatinine 0.96 (0.55-1.02) mg/dL Est Cr Clr Drug Dosing TNP Estimated GFR (MDRD) > 60 (>60) MLS/MIN BUN/Creatinine Ratio 11.5 (6-25) Glucose 158 H D (74-100) mg/dL Calcium 9.2 (8.5-10.1) mg/dL Troponin I < 0.017 (0.000-0.060) ng/mL TSH, Ultra Sensitive (0.358-3.740) uIU/mL 08/16/20 Range/Units 16:00 WBC (4.0-11.0) K/uL RBC (3.80-5.80) M/uL Hgb (11.5-16.5) g/dL Hct (37.0-47.0) % MCV (76-96) fL MCH (27.0-32.0) pg MCHC (31.0-35.0) g/dL RDW (11.0-16.0) % Plt Count (150-500) K/uL MPV (6.0-10.0) fL D-Dimer, Quantitative (0-400) ng/mL Sodium (136-145) mmol/L Potassium (3.5-5.1) mmol/L Chloride (98-107) mmol/L Carbon Dioxide (21.0-32.0) mmol/L Anion Gap (5.0-15.0) mmol/L BUN (8-26) mg/dL Creatinine (0.55-1.02) mg/dL Est Cr Clr Drug Dosing Estimated GFR (MDRD) (>60) MLS/MIN BUN/Creatinine Ratio (6-25) Glucose (74-100) mg/dL Calcium (8.5-10.1) mg/dL Troponin I (0.000-0.060) ng/mL TSH, Ultra Sensitive 0.813 D (0.358-3.740) uIU/mL Meds: Medications Generic Name Dose Route Start Last Admin Trade Name Freq PRN Reason Stop Dose Admin Sodium Chloride 10 ml 08/16/20 15:55 Sodium Chloride 0.9% 10 Ml Syringe FLUSH ASDIRECTED PRN Keep Vein Open Discontinued Medications Generic Name Dose Route Start Last Admin Trade Name Freq PRN Reason Stop Dose Admin Methylprednisolone Sodium Succinate 40 mg 08/16/20 16:51 Methylprednisolone Sodium Succinate 40 Mg/1 Ml Sdv IM 08/16/20 16:52 ONETIME ONE - Re-Assessments/Exams Free Text/Narrative Re-Assessment/Exam: EKG was ordered - NSR, no acute ischemic changes initial vitals showed a BP 180/110 - but it was rechecked manually and was 145/85. It was repeated multiple times and was running around this above normal BP range. labs were ordered - negative Trop, DDimer, and normal CBC/BMP. For HTN, was started on lisinopril 5mg PO. was given Im solumedrol for her itching will be d/cd home on a prescription of lisinopril and plan to f/u w PCP in 5 days for BP re-eval. Departure - Departure Time of Disposition: 17:17 Disposition: Home, Self-Care 01 Condition: Good Clinical Impression: Rash Hypertension Qualifiers: Hypertension type: unspecified Qualified Code(s): I10 - Essential (primary) hypertension - Discharge Information *PRESCRIPTION DRUG MONITORING PROGRAM REVIEWED*: Not Applicable *COPY OF PRESCRIPTION DRUG MONITORING REPORT IN PATIENT MELVIN: Not Applicable Forms: ED Department Discharge Sepsis Event Note (ED) - Focused Exam Vital Signs: Vital Signs Temp Pulse Resp BP Pulse Ox 08/16/20 16:00 36.7 C 100 20 130/88 98 - Problem List & Annotations (1) Hypertension SNOMED Code(s): 79225815 Code(s): I10 - ESSENTIAL (PRIMARY) HYPERTENSION Status: Acute Priority: Low Current Visit: Yes Qualifiers: Hypertension type: unspecified Qualified Code(s): I10 - Essential (primary) hypertension (2) Rash SNOMED Code(s): 335388466, 805830752 Code(s): R21 - RASH AND OTHER NONSPECIFIC SKIN ERUPTION Status: Acute Priority: Low Current Visit: Yes (3) Smoking SNOMED Code(s): 13953441 Code(s): F17.200 - NICOTINE DEPENDENCE, UNSPECIFIED, UNCOMPLICATED Status: Chronic Priority: Medium Current Visit: Yes - Problem List Review Problem List Initiated/Reviewed/Updated: Yes - My Orders Last 24 Hours: My Active Orders 08/16/20 15:55 EKG Documentation Completion [RC] ASDIRECTED Chest 2V [CR] Stat Sodium Chloride 0.9% [Saline Flush] 10 ml FLUSH ASDIRECTED PRN Saline Lock Insert [OM.PC] Routine 08/16/20 17:10 lisinopriL [Prinivil] 5 mg PO ONETIME ONE - Assessment/Plan Last 24 Hours: My Active Orders 08/16/20 15:55 EKG Documentation Completion [RC] ASDIRECTED Chest 2V [CR] Stat Sodium Chloride 0.9% [Saline Flush] 10 ml FLUSH ASDIRECTED PRN Saline Lock Insert [OM.PC] Routine 08/16/20 17:10 lisinopriL [Prinivil] 5 mg PO ONETIME ONE Plan: - recommend smoking cessation - start taking lisinopril daily as prescribed - check your blood pressure twice daily and write them down in a notebook - follow up with your PCP in 4-5 days for blood pressure re-evaluation - return to the ER if any concerns
[2020-08-16] MEDS ORDERED: Sodium Chloride 0.9% 10 ML Syringe FLUSH PRN (15:55)
[2020-08-16 16:27] VITALS: PULSE 100
[2020-08-16] MEDS: methylPREDNISolone Sodium Succinate 40 MG/1 ML SDV IM ONE (17:20)
[2020-08-16] MEDS: Lisinopril 5 MG Tab PO ONE (17:20)
[2020-08-16 17:29] VITALS: BP 130/90
--- NOTE | 2020-08-17 11:13 | CR ---
DATE OF SERVICE: 08/16/20 CLINICAL DATA: CP PA AND LATERAL CHEST: Comparison is made to a prior exam dated 01/30/20. The heart size is normal. The lungs are clear. No pneumothorax. No pleural effusions. No evidence of acute intrathoracic disease. [id number] [facility]
== END 2020-08-16 17:45 | disposition home or self-care (01) ==
LOC: LB.ED 15:31
DX: R21 Rash and other nonspecific skin eruption (principal); I10 Essential (primary) hypertension; K21.9 Gastro-esophageal reflux disease without esophagitis; E03.9 Hypothyroidism, unspecified; Z79.899 Other long term (current) drug therapy
CPT/HCPCS: 36415; 71046; 80048; 84443; 84484; 85027; 85379; 93005; 96372; 99283; 99285-25; A9270-GY; J2920